=== PATIENT | female | born 1950 | race African-American/Black ===

== ENCOUNTER 2017-08-18 10:27 | Emergency (ER) | payer MEDICARE, MEDICAID, OTHER ==
[~2017-08-18] VITALS: Ht 160 cm; Wt 80.9 kg
[2017-08-18 10:48] VITALS: Ht 160 cm; Wt 80.9 kg
[2017-08-18] MEDS ORDERED: GLUCOPHAGE500 MG PO (10:50)
[2017-08-18] MEDS ORDERED: HYDROCHLOROTH12.5 M1 PO (10:51)
[2017-08-18] MEDS ORDERED: KEPPRA500 MG PO (10:52)
[2017-08-18] MEDS ORDERED: TYLENOL W/CODEI1 TAB PO (10:52)
[2017-08-18] MEDS ORDERED: NORCO 7.5/325 T1 TA1 PO (10:53)
[2017-08-18] MEDS ORDERED: ZOFRAN4 MG PO (10:53)
[2017-08-18 12:57] LABS: HEMATOCRIT 42.6 % (36.0-48.0); HEMOGLOBIN 14.2 g/dL (12-16); MCH 28.9 pg (26.0-34.0); MCHC 33.3 g/dL (31.0-37.0); MCV 86.6 fL (80.0-100.0); MEAN PLATELET VOLUME 10.8 fL (7.4-10.4); PLATELET COUNT 355 10x3/uL (130-400); RBC 4.92 10x6/uL (4.00-5.40); RDW 15.2 % (11.5-14.5); WBC 9.1 10x3/uL (4.8-10.8)
[2017-08-18 13:07] LABS: APPEARANCE CLEAR (CLEAR); BILIRUBIN NEGATIVE (NEGATIVE); COLOR YELLOW (YELLOW); GLUCOSE 1000 mg/dL (NEGATIVE); KETONE NEGATIVE (NEGATIVE); NITRITE NEGATIVE (NEGATIVE); PROTEIN NEGATIVE (NEGATIVE); SPECIFIC GRAVITY 1.005 (1.005-1.020); UROBILINOGEN NORMAL (NORMAL)
[2017-08-18 13:28] LABS: INR 0.93 (0.85-1.17); PROTIME 12.1 SECONDS (11.6-15.0)
[2017-08-18 13:30] LABS: ALBUMIN 3.8 g/dL (3.4-5.0); BILIRUBIN - TOTAL 0.31 mg/dL (0.2-1.3); CALCIUM 10.8 mg/dL (8.5-10.1); CARBON DIOXIDE 30.5 mmol/L (21.0-32.0); POTASSIUM - SERUM 4.5 mmol/L (3.5-5.1); PROTEIN - SERUM 8.5 g/dL (6.4-8.2)
[2017-08-18 13:43] VITALS: BP 130/78
[2017-08-18 13:48] LABS: LYMPHOCYTES 61 % (15-50); MONOCYTES 10 % (2-11); NEUTROPHILS 29 % (40-80); PLATELET ESTIMATE NORMAL
== END 2017-08-18 13:50 | disposition home or self-care (01) ==
LOC: D.ER 10:27
PROVIDERS: Emergency Medicine
DX: K92.2 Gastrointestinal hemorrhage, unspecified (principal)

== ENCOUNTER 2017-10-25 16:05 | Emergency (ER) | payer MEDICARE, MEDICAID, OTHER ==
[~2017-10-25] VITALS: Ht 160 cm; Wt 78.6 kg
[~2017-10-25 16:05] MED LIST: GLUCOPHAGE500 MG PO; HYDROCHLOROTH12.5 M1 PO; KEPPRA500 MG PO; NORCO 7.5/325 T1 TA1 PO; TYLENOL W/CODEI1 TAB PO; ZOFRAN4 MG PO
[2017-10-25 16:21] VITALS: Ht 160 cm; Wt 78.6 kg
[2017-10-25] MEDS ORDERED: VOLTAREN75 MG PO (17:09)
[2017-10-25] MEDS ORDERED: VIBRAMYCIN 100100 MG PO (17:52)
[2017-10-25] MEDS ORDERED: ZOFRAN ODT4 MG/UDTAB PO (17:53)
[2017-10-25 19:08] VITALS: BP 117/62
== END 2017-10-25 19:02 | disposition home or self-care (01) ==
LOC: D.ER 16:05
DX: L03.311 Cellulitis of abdominal wall (principal); M54.6 Pain in thoracic spine; E11.9 Type 2 diabetes mellitus without complications; I10 Essential (primary) hypertension

== ENCOUNTER 2017-12-23 10:24 | Emergency (ER) | payer MEDICARE, MEDICAID, OTHER ==
[~2017-12-23] VITALS: Ht 160 cm; Wt 95.5 kg
[~2017-12-23 10:24] MED LIST changes: +VIBRAMYCIN 100100 MG PO; +VOLTAREN75 MG PO; +ZOFRAN ODT4 MG/UDTAB PO
[2017-12-23 10:26] VITALS: Ht 160 cm; Wt 95.5 kg
[2017-12-23] MEDS ORDERED: HYDROCODON-ACE1 EAC7 PO (12:11)
[2017-12-23] MEDS ORDERED: NAPROXEN375 M1 PO (12:11)
[2017-12-23 12:33] VITALS: BP 139/74
== END 2017-12-23 15:22 | disposition home or self-care (01) ==
LOC: D.ER 10:24
DX: S39.012A Strain of muscle, fascia and tendon of lower back, initial encounter (principal); X58.XXXA Exposure to other specified factors, initial encounter; Y93.89 Activity, other specified; Y92.89 Other specified places as the place of occurrence of the external cause; G40.909 Epilepsy, unspecified, not intractable, without status epilepticus; E11.9 Type 2 diabetes mellitus without complications; I10 Essential (primary) hypertension

== ENCOUNTER 2018-10-28 18:09 | Emergency (ER) | payer MEDICARE, MEDICAID ==
[~2018-10-28] VITALS: Ht 160 cm; Wt 81.8 kg
[~2018-10-28 18:09] MED LIST changes: +FAMVIR500 MG PO; +FLORAJEN3 CAPS460 MG PO; +HYDROCODON-ACE1 EAC7 PO; +MUCINEX600 MG PO; +NAPROXEN375 M1 PO; +NORVASC5 MG PO; +OMNICEF300 MG PO; +TESSALON PERLE100 MG PO; +ZITHROMAX250 MG PO
[2018-10-28 18:15] VITALS: Ht 160 cm; Wt 81.8 kg
[2018-10-28] MEDS ORDERED: NAPROSYN500 MG PO (19:14)
[2018-10-28] MEDS ORDERED: VIBRAMYCIN 100100 MG PO (19:14)
[2018-10-28 19:36] VITALS: BP 138/73
== END 2018-10-28 19:34 | disposition home or self-care (01) ==
LOC: D.ER 18:09
DX: L03.114 Cellulitis of left upper limb (principal)

== ENCOUNTER 2019-05-16 11:09 | Emergency (ER) | payer MEDICARE, MEDICAID ==
[~2019-05-16] VITALS: Ht 160 cm; Wt 81.4 kg
[~2019-05-16 11:09] MED LIST changes: +NAPROSYN500 MG PO
[2019-05-16 11:13] VITALS: Ht 160 cm; Wt 81.4 kg
[2019-05-16] MEDS ORDERED: ULTRAM50 MG PO (12:30)
[2019-05-16] MEDS ORDERED: NAPROSYN500 MG PO (12:30)
[2019-05-16 13:02] VITALS: BP 134/50
== END 2019-05-16 13:08 | disposition home or self-care (01) ==
LOC: D.ER 11:09
DX: S20.212A Contusion of left front wall of thorax, initial encounter (principal); W10.9XXA Fall (on) (from) unspecified stairs and steps, initial encounter; E11.9 Type 2 diabetes mellitus without complications; Z79.84 Long term (current) use of oral hypoglycemic drugs; I10 Essential (primary) hypertension; M54.9 Dorsalgia, unspecified

== ENCOUNTER 2019-10-23 12:31 | Inpatient (IN) | payer MEDICARE, MEDICAID ==
[~2019-10-23] VITALS: Ht 160 cm; Wt 79.4 kg
[~2019-10-23 12:31] MED LIST changes: +ULTRAM50 MG PO
[2019-10-23 15:58] LABS: HEMOGLOBIN 13.4 g/dL (12-16); MCH 28.5 pg (26.0-34.0); MCHC 32.7 g/dL (31.0-37.0); MCV 87.2 fL (80.0-100.0); MEAN PLATELET VOLUME 9.7 fL (7.4-10.4); PLATELET COUNT 359 10x3/uL (130-400); RDW 15.4 % (11.5-14.5); WBC 9.6 10x3/uL (4.8-10.8)
[2019-10-23 16:23] LABS: APTT 28.9 SECONDS (22.8-39.4); INR 0.97 (0.85-1.17); PROTIME 12.8 SECONDS (11.6-15.0)
[2019-10-23 16:24] LABS: ANION GAP 6.7 mmol/L (8-16); CALCIUM 9.5 mg/dL (8.5-10.1); CARBON DIOXIDE 32.3 mmol/L (21.0-32.0); CREATININE - SERUM 0.9 mg/dL (0.6-1.3)
[2019-10-23 16:30] LABS: ALBUMIN 3.8 g/dL (3.4-5.0); BILIRUBIN - TOTAL 0.25 mg/dL (0.2-1.3); PROTEIN - SERUM 7.7 g/dL (6.4-8.2)
[2019-10-23 17:11] LABS: EOSINOPHILS 2 % (0-7); LYMPHOCYTES 59 % (15-50); MONOCYTES 4 % (2-11); NEUTROPHILS 35 % (40-80); PLATELET ESTIMATE NORMAL
[2019-10-23 19:00] VITALS: BP 162/77
[2019-10-23 20:00] VITALS: BP 165/69
[2019-10-23] MEDS ORDERED: JANUMET 50-1,01 EAC1 PO (20:00)
--- NOTE | 2019-10-23 20:00 | NUR ---
RECEIVED TO FLOOR VIA WHEELCHAIR, ACCOMPANIED BY ER STAFF. A&O, AMBULATES INDEPENDENTLY. DENIES PAIN/WEAKNESS AT THIS TIME. SANDWICH TRAY AND DIET ETTA GIVEN PER REQUEST, CTM.
[2019-10-23] MEDS ORDERED: GLUCOTROL ER2.5 MG PO (20:02)
[2019-10-23] MEDS ORDERED: GLUCOTROL 5 MG T5 MG PO (20:03)
[2019-10-23 23:14] LABS: CREATINE KINASE 272 UL (21-215)
[2019-10-23 23:15] LABS: TROPONIN-I < 0.017 ng/mL (0.000-0.060)
[2019-10-23 23:55] VITALS: BMI 31.0
[2019-10-24] VITALS: BP 182/73
[2019-10-24 04:00] VITALS: BP 136/67
--- NOTE | 2019-10-24 06:18 | NUR ---
I have reviewed this patient and I concur with the Shift Assessment completed by the Licensed Practical Nurse today this shift.
[2019-10-24 07:00] LABS: HEMATOCRIT 39.6 % (36.0-48.0); MCH 28.5 pg (26.0-34.0); MCHC 32.8 g/dL (31.0-37.0); MCV 86.8 fL (80.0-100.0); MEAN PLATELET VOLUME 10.1 fL (7.4-10.4); PLATELET COUNT 388 10x3/uL (130-400); RBC 4.56 10x6/uL (4.00-5.40); RDW 15.6 % (11.5-14.5); WBC 8.9 10x3/uL (4.8-10.8)
--- NOTE | 2019-10-24 07:00 | NUR ---
PT RESTING QUIETLY IN BED. ALERT AND ORIENTED. PT REPORTS PAIN TO RIGHT ARM 6/10 AT THIS TIME. IV TO LEFT AC WITH 1/2 NS @ 50ML/HR INFUSING VIA PUMP. SITE WITHOUT REDNESS OR EDEMA. MOVES ALL EXTREMITIES. DENIES FURTHER NEEDS AT TIS TIME. CL WITHIN REACH. ENCOURAGED TO CALL WITH NEEDS. CONTINUE POC
[2019-10-24 07:14] LABS: CALC OSMOLALITY 280 mosm/kg (275-300); CALCIUM 9.2 mg/dL (8.5-10.1); CARBON DIOXIDE 28.1 mmol/L (21.0-32.0); CHLORIDE - SERUM 103 mmol/L (98-107); CKMB 3.7 U/L (0.0-3.6); CREATINE KINASE 221 UL (21-215); CREATININE - SERUM 0.8 mg/dL (0.6-1.3); GLUCOSE 154 mg/dL (74-106); PHOSPHOROUS 4.1 mg/dL (2.5-4.9); POTASSIUM - SERUM 3.9 mmol/L (3.5-5.1); SODIUM 139 mmol/L (136-145); TROPONIN-I < 0.017 ng/mL (0.000-0.060); UREA NITROGEN 13 mg/dL (7-18); eGFR NON AFRICAN AMERICAN 75 mL/min (90-120)
[2019-10-24 07:57] LABS: BASOPHILS 1 % (0-2); EOSINOPHILS 1 % (0-7); LYMPHOCYTES 56 % (15-50); MONOCYTES 4 % (2-11); NEUTROPHILS 37 % (40-80)
[2019-10-24 07:58] LABS: BURR CELLS OCC; TARGET CELLS OCC; TEAR DROP CELLS OCC
[2019-10-24 08:21] LABS: PLATELET ESTIMATE NORMAL
[2019-10-24 09:12] VITALS: BP 123/60
--- NOTE | 2019-10-24 10:00 | NUR ---
SALINE LOC 20 G SITED TO LEFT FOREARM X 1 STICK. GOOD BLOOD RETURN, PT JAVON WELL.
[2019-10-24 10:45] LABS: CKMB 3.6 U/L (0.0-3.6); CREATINE KINASE 215 UL (21-215); TROPONIN-I < 0.017 ng/mL (0.000-0.060)
[2019-10-24 13:02] VITALS: BP 131/55
[2019-10-24 17:22] VITALS: BP 122/98
[2019-10-24 20:00] VITALS: BP 134/73
--- NOTE | 2019-10-24 20:30 | NUR ---
LYING IN BED. ALERT AND ORIENTED X4. RT SIDED WEAKNESS NOTED. AMBULTORY. RESP EVEN AND NONLABORED. TELEMETRY SHOWS SR WITH RATE OF 71. 1/2 NS @ 50 MLHR INFUSING IN LT AC. C/O PAIN IN RT SHOULDER, NECK AND SIDE 8. SALINE LOCK NOTED TO LT FOREARM. SR ELEVATED X2. CL IN REACH. VERY TALKATIVE WITH STAFF.
--- NOTE | 2019-10-24 20:35 | NUR ---
MEDICATED WITH NORCO FOR C/O RT SHOULDER, NECK AND SIDE PAIN. SR ELEVATED X2. CL IN REACH.
--- NOTE | 2019-10-24 21:58 | NUR ---
MRI WAS ATTEMPTED. PATIENT WAS PUT ON MRI TABLE AND BECAME TOO CLAUSTROPHOBIC WHEN THE HEAD PIECE WAS PUT ON. SHE WAS TOLD THEY WOULD "KNOCK HER OUT FOR THE MRI". I SPOKE WITH NORMA THE NURSE AND SHE TOLD ME THERE WERE NOT ANY MEDS ORDERED. THE PATIENT TOLD ME SHE COULD NOT DO IT. I TOLD HER WE COULD TRY AGAIN TOMORROW.
--- NOTE | 2019-10-24 22:00 | NUR ---
BACK FROM MRI THAT SHE REFUSED. STATES SHE WANTS "ANESTHESIA TO SEDATE HER".
[2019-10-25] VITALS: BP 126/54
--- NOTE | 2019-10-25 01:32 | NUR ---
RESTING WITH EYES CLOSED. RESP EVEN AND NONLABORED. NO DISTRESS. CL IN REACH.
[2019-10-25 04:00] VITALS: BP 139/60
[2019-10-25 06:42] LABS: BASOPHILS 0.3 % (0-2); EOSINOPHILS 2.2 % (0-7); HEMATOCRIT 40.7 % (36.0-48.0); HEMOGLOBIN 13.5 g/dL (12-16); IMMATURE GRANULOCYTES 0.1 % (0-5); LYMPHOCYTES 50.6 % (15-50); MCH 28.7 pg (26.0-34.0); MCHC 33.2 g/dL (31.0-37.0); MCV 86.6 fL (80.0-100.0); MEAN PLATELET VOLUME 10.6 fL (7.4-10.4); NEUTROPHILS 37.8 % (40-80); PLATELET COUNT 394 10x3/uL (130-400); RDW 15.2 % (11.5-14.5); WBC 7.2 10x3/uL (4.8-10.8)
[2019-10-25 06:57] LABS: CALC OSMOLALITY 285 mosm/kg (275-300); CALCIUM 9.3 mg/dL (8.5-10.1); CARBON DIOXIDE 29.2 mmol/L (21.0-32.0); CHLORIDE - SERUM 104 mmol/L (98-107); CREATININE - SERUM 0.8 mg/dL (0.6-1.3); GLUCOSE 193 mg/dL (74-106); PHOSPHOROUS 3.7 mg/dL (2.5-4.9); POTASSIUM - SERUM 3.8 mmol/L (3.5-5.1); SODIUM 141 mmol/L (136-145); UREA NITROGEN 13 mg/dL (7-18); eGFR NON AFRICAN AMERICAN 75 mL/min (90-120)
[2019-10-25 08:36] VITALS: BP 152/69
--- NOTE | 2019-10-25 09:17 | NUR ---
PT SITTING UP IN BED WITH SPOUSE AT BEDSIDE. RESP EVEN AND UNLABORED. REPORTS PAIN 3/10 AT THIS TIME, BUT DENIES NEED FOR PAIN MEDICATION AT THIS TIME. IV TO LEFT FOREARM WITH 1/2 NS @ 50ML/HR INFUSING VIA PUMP. SITE WITHOUT REDNESS OR EDEMA. SALINE LOC TO LEFT AC SITE WITHOUT REDNESS OR EDEMA. DENIES FURTHER NEEDS AT TIS TIME. CL WITHIN REACH. ENCOURAGED TO CALL WITH NEEDS. CONTINUE POC
[2019-10-25 12:30] VITALS: BP 122/56
[2019-10-25 14:42] VITALS: Ht 160 cm; Wt 79.4 kg
[2019-10-25 18:10] VITALS: BP 128/59
[2019-10-25 20:00] VITALS: BP 144/77
[2019-10-26 06:18] LABS: HEMOGLOBIN 12.7 g/dL (12-16); MCH 28.2 pg (26.0-34.0); MCHC 32.6 g/dL (31.0-37.0); MCV 86.5 fL (80.0-100.0); MEAN PLATELET VOLUME 10.2 fL (7.4-10.4); PLATELET COUNT 387 10x3/uL (130-400); RBC 4.51 10x6/uL (4.00-5.40); RDW 15.3 % (11.5-14.5); WBC 8.3 10x3/uL (4.8-10.8)
[2019-10-26 06:38] LABS: CALC OSMOLALITY 285 mosm/kg (275-300); CARBON DIOXIDE 26.5 mmol/L (21.0-32.0); CHLORIDE - SERUM 103 mmol/L (98-107); CREATININE - SERUM 0.8 mg/dL (0.6-1.3); GLUCOSE 226 mg/dL (74-106); MAGNESIUM - SERUM 2.1 mg/dL (1.8-2.4); PHOSPHOROUS 3.4 mg/dL (2.5-4.9); POTASSIUM - SERUM 3.8 mmol/L (3.5-5.1); SODIUM 139 mmol/L (136-145); UREA NITROGEN 15 mg/dL (7-18); eGFR NON AFRICAN AMERICAN 75 mL/min (90-120)
--- NOTE | 2019-10-26 07:15 | NUR ---
REC'D IN BED AWAKE AND ALERT. RESP EVEN AND UNLABORED WITH NO DISTRESS NOTED. CAN EXPRESS NEEDS AND WANT. NO C/O NOTED OR VOICED ASSESSMENT COMPLETED. NO C/O NOTED OR VOICED. C/L IN REACH AT BEDSIDE.
[2019-10-26 07:30] LABS: BASOPHILS 1 % (0-2); BURR CELLS OCC; LYMPHOCYTES 75 % (15-50); MONOCYTES 2 % (2-11); NEUTROPHILS 19 % (40-80); SCHISTOCYTES OCC
[2019-10-26 07:31] LABS: TARGET CELLS OCC
[2019-10-26 07:40] LABS: PLATELET ESTIMATE NORMAL
[2019-10-26 08:00] VITALS: BP 133/68
--- NOTE | 2019-10-26 08:58 | EC ---
PATIENT:RAHAT OLGUIN DATE OF SERVICE: 10/23/19 SEX: F MEDICAL RECORD: [id number] DATE OF : 50 LOCATION:[facility] AGE OF PATIENT: 68 ADMISSION DATE: 10/23/19 REFERRING PHYSICIAN: INTERPRETING PHYSICIAN: HERO RAJPUT MD ECHOCARDIOGRAM REPORT ECHO CHARGES 4 ECHO COMPLETE Date: 10/24/19 CLINICAL DIAGNOSIS: RIGHT SIDE NUMB, TIA ECHOCARDIOGRAPHIC MEASUREMENTS (adult normal given) AC root (d.<3.7cm) 2.8 cm LV Septum d (<1.2 cm> 0.7 cm Valve Excursion 1.5 cm LV Septum (systole) 1.2 cm Left Atria (s.<4.0cm> 3.5 cm LVPW d(<1.2cm) 0.7 cm RV (d.<2.3cm) 2.1 cm LVPW (sytole) 1.0 cm LV diastole(<5.6CM) 5.7 cm MV E-F(>70mm/sec) cm LV systole 4.3 cm LVOT Diameter 1.7 cm MV exc.(>10mm) cm Est.ejection fraction (50-75%) % DOPPLER: LVIT cm/sec A 111 cm/sec E 82 cm/sec LA cm/sec RVSP 27.7 mmHg LVOT 126 cm/sec AOP1/2T m/s Asc. Ao 147 cm/sec RVOT 75 cm/sec RA cm/sec PA 93 cm/sec AV Gradient Peak 8.7 mmHg AV Mean 5.1 mmHg AV Area 1.8 cm MV Gradient Peak 9.2 mmHg MV Mean 4.8 mmHg MV Area cm COMMENTS: Search Marketing Analyst: Eleonora GARIBAY Early Childhood Teacher: 3 Dr. Galdamez TAPE# PACS Pericardial Effusion N DATE OF SERVICE: Adequate 2D, color flow imaging, spectral Doppler, and M-mode. No LVH. LV internal dimensions are normal. Wall motion is normal. EF is greater than or equal to 55%. Aortic valve is tricuspid. No evidence of stenosis by Doppler interrogation. Left atrium is normal. Mitral valve shows no prolapse. Trivial MR. Right-sided chambers are grossly normal. Trivial TR. NTS:[id number] Voice Confirmation ID: [id number] DOCUMENT ID: [id number] ECHOCARDIOGRAM REPORT [id number] RAHAT OLGUIN HERO RAJPUT MD at 0858 CC: [id number] DICTATION DATE: 10/24/19 1615 INSPECTOR WATCH PARTS: 10/24/19 192 ADM IN [place] [id number] [place] [address]
[2019-10-26 13:26] VITALS: BP 134/65
--- NOTE | 2019-10-26 14:25 | NUR ---
I have reviewed this patient and I concur with the Shift Assessment completed by the Licensed Practical Nurse today this shift.
[2019-10-26 16:17] VITALS: BP 136/66
--- NOTE | 2019-10-26 18:33 | NUR ---
REC'D CALL FROM DR. OTERO WITH NEW ORDERS FOR DECADRON 6 MG EVERY 6 HOURS VIA IV. PT MADE AWARE OF NEW ORDER AND AGREES WITH POC. C/L IN REACH AT BEDSIDE.
[2019-10-26 20:00] VITALS: BP 141/65
--- NOTE | 2019-10-27 03:30 | NUR ---
I have reviewed this patient and I concur with the Shift Assessment completed by the Licensed Practical Nurse today this shift.
[2019-10-27 04:00] VITALS: BP 125/46
[2019-10-27 07:02] LABS: BASOPHILS 0.2 % (0-2); EOSINOPHILS 2.2 % (0-7); HEMATOCRIT 41.2 % (36.0-48.0); HEMOGLOBIN 13.5 g/dL (12-16); IMMATURE GRANULOCYTES 0.1 % (0-5); MCH 28.4 pg (26.0-34.0); MCHC 32.8 g/dL (31.0-37.0); MCV 86.7 fL (80.0-100.0); MEAN PLATELET VOLUME 10.4 fL (7.4-10.4); MONOCYTES 7.6 % (2-11); PLATELET COUNT 406 10x3/uL (130-400); RBC 4.75 10x6/uL (4.00-5.40); RDW 15.2 % (11.5-14.5); WBC 8.8 10x3/uL (4.8-10.8)
[2019-10-27 07:06] LABS: LYMPHOCYTES 61.9 % (15-50)
[2019-10-27 07:50] LABS: ANION GAP 14.9 mmol/L (8-16); CALCIUM 9.4 mg/dL (8.5-10.1); CARBON DIOXIDE 26.3 mmol/L (21.0-32.0); CREATININE - SERUM 0.9 mg/dL (0.6-1.3); MAGNESIUM - SERUM 2.1 mg/dL (1.8-2.4); PHOSPHOROUS 4.1 mg/dL (2.5-4.9); POTASSIUM - SERUM 4.2 mmol/L (3.5-5.1)
--- NOTE | 2019-10-27 08:46 | NUR ---
RESTING IN BED, NO DISTRESS NOTED SL IN PLACE, NPO FOR CT OF ABD
[2019-10-27 09:53] VITALS: BP 120/57
[2019-10-27 12:45] VITALS: BP 142/67
[2019-10-27 16:37] VITALS: BP 116/67
--- NOTE | 2019-10-27 21:30 | NUR ---
RESTING QUEITLY. NO COMPLAINTS VOICED AT PRESENT.SL TO RFA INTACT WITHOUT REDNESS OR EDMEA NOTED. CL IN REACH
[2019-10-27 23:03] VITALS: BP 146/70
--- NOTE | 2019-10-28 00:10 | NUR ---
REFUSES DECADRON. STATES ALLERGIC TO STERIODS
--- NOTE | 2019-10-28 02:18 | NUR ---
I have reviewed this patient and I concur with the Shift Assessment completed by the Licensed Practical Nurse today this shift.
[2019-10-28 02:35] VITALS: BP 102/63
[2019-10-28 04:49] LABS: HEMATOCRIT 41.5 % (36.0-48.0); HEMOGLOBIN 13.5 g/dL (12-16); MCH 28.1 pg (26.0-34.0); MCHC 32.5 g/dL (31.0-37.0); MCV 86.3 fL (80.0-100.0); MEAN PLATELET VOLUME 10.4 fL (7.4-10.4); PLATELET COUNT 333 10x3/uL (130-400); RBC 4.81 10x6/uL (4.00-5.40); RDW 15.3 % (11.5-14.5)
[2019-10-28 04:57] LABS: CALC OSMOLALITY 280 mosm/kg (275-300); CALCIUM 9.5 mg/dL (8.5-10.1); CARBON DIOXIDE 29.2 mmol/L (21.0-32.0); CHLORIDE - SERUM 102 mmol/L (98-107); CREATININE - SERUM 0.8 mg/dL (0.6-1.3); GLUCOSE 180 mg/dL (74-106); MAGNESIUM - SERUM 2.1 mg/dL (1.8-2.4); PHOSPHOROUS 4.2 mg/dL (2.5-4.9); POTASSIUM - SERUM 4.1 mmol/L (3.5-5.1); SODIUM 137 mmol/L (136-145); UREA NITROGEN 18 mg/dL (7-18); eGFR NON AFRICAN AMERICAN 75 mL/min (90-120)
[2019-10-28 05:07] LABS: BASOPHILS 2 % (0-2); LYMPHOCYTES 59 % (15-50); MONOCYTES 4 % (2-11); NEUTROPHILS 35 % (40-80); PLATELET ESTIMATE NORMAL
[2019-10-28 07:13] VITALS: BP 125/69
[2019-10-28 09:31] VITALS: BP 112/61
--- NOTE | 2019-10-28 09:54 | NUR ---
PT SITTING UP IN BED. RESP EVEN AND UNLABORED. REPORTS PAIN 3/10 AT THIS TIME. SALINE LOC TO LEFT FOREARM, SITE WITHOUT REDNESS OR EDEMA. DENIES FURTHER NEEDS AT THIS TIME. CL WITHIN REACH. ENCORUAGED TO CALL WITH NEEDS. CONTINUE POC
[2019-10-28 11:36] LABS: CHOL - HDL RATIO 4.9 ratio (2.3-4.1); LDL-HDL RATIO 3.4 ratio (1.5-3.5)
[2019-10-28] MEDS ORDERED: ASPIRIN81 MG PO (11:57)
[2019-10-28] MEDS ORDERED: PROTONIX40 MG PO (11:57)
[2019-10-28] MEDS ORDERED: LIPITOR20 MG PO (11:58)
[2019-10-28] MEDS ORDERED: MEDROL DOSE PACK4 MG PO (11:58)
--- NOTE | 2019-10-28 12:07 | NUR ---
OT NOTE/EVAL: PT INDEP WITH MOBILITY AND ADLS..NO OT RECOMMENDED AT THIS TIME. THANK YOU FOR REFERAL, MACEY VALENCIA, OTR/L
[2019-10-28 12:34] VITALS: BP 125/65
--- NOTE | 2019-10-28 14:44 | MORECARE ---
CASE MANAGEMENT DISCHARGE SUMMARY PATIENT: RAHAT OLGUIN UNIT: [id number] ADM DATE: 10/23/19 AGE: 68 : 50 SEX: F ROOM/BED: D.2207 AUTHOR: POOL METCALF PHYSICIAN: REFERRING PHYSICIAN: ANDREW GORDON DO DATE OF SERVICE: 10/28/19 Discharge Plan Patient Name: RAHAT OLGUIN Facility: [facility]:[place] : 1950 Planned Disposition: Home or Self Care Anticipated Discharge Date: Discharge Date: Expected LOS: Initial Reviewer: [email or web address] Initial Review Date: 10/23/2019 Generated: 10/28/19 3:43 pm Comments DCP- Discharge Planning Updated by [email or web address]: Lina Mendiola on 10/28/19 1:[address] Patient Name: RAHAT OLGUIN Admission Status: ER Accout number: [id number] Admission Date: 10-23-2019 : 1950 Admission Diagnosis:CHEST PAIN, UNSPECIFIED Attending: ANDREW GORDON Current LOS: 5 Anticipated DC Date: Planned Disposition: Home or Self Care Primary Insurance: [employer] MEDICARE PPO or HMO Discharge Planning Comments: CM met with patient to complete initial dc planning assessment. CM educated patient on the CM role and verbal consent given by patient to complete assessment. Patient lives at home with her spouse where she is independent with her care. At discharge patient plans to return home and feels this is a safe discharge. CM discussed availability of home health, rehab services, and medical equipment. She has a glucometer at home. She did not think that she needed any home health or other services. She will drive herself home at discharge and feels that she si safe to do so. IMM served and explained copy given. Patient denied known discharge needs at this time. CM will continue to follow and will assist as needed with dc plans/needs. Peer Specialist: Lina Mendiola DCPIA - Discharge Planning Initial Assessment Updated by [email or web address]: Lina Mendiola on 10/28/19 2:39 pm * Is the patient Alert and Oriented? Yes * How many steps to enter\exit or inside your home? STEPS * PCP ANSHUL GAEG * Pharmacy [facility] [address] * Preadmission Environment Home with Family * ADLs Independent * Equipment Glucometer * List name and contact numbers for known caregivers / representatives who currently or will assist patient after discharge: FLAQUITA FARIA [phone] * Verbal permission to speak to the caregivers and representatives has been obtained from the patient. N/A * Community resources currently utilized None * Additional services required to return to the preadmission environment? No * Can the patient safely return to the preadmission environment? Yes * Has this patient been hospitalized within the prior 30 days at any hospital? No Coverage Notice Reviewer: [email or web address] Brennen Mendiola Notice Issued Date-Time: 10/28/2019 14:10 Notice Type: IM Discharge Notice Notice Delivered To: Patient Relationship to Patient: Black Off Worker Name: Delivery Method: HAND - Hand Delivered Ana Days: Prior Verbal Notification: Recipient Understood Notice: Yes Recipient Signature: Yes Med Rec Note Co-signed by Attending: Coverage Notice Comment: imm served and explained Patient Name: RAHAT OLGUIN Page [id number] at 1444 All edits/amendments must be made on the electronic document DICTATION DATE: 10/28/19 1443 LANDSCAPE DRAFTER: FUNMILAYO 10/28/19 1443 RPT#: [id number] DC DATE: STATUS: ADM IN [facility] [address] [place] [address] END OF REPORT
--- NOTE | 2019-10-29 07:29 | MORECARE ---
CASE MANAGEMENT DISCHARGE SUMMARY PATIENT: RAHAT OLGUIN UNIT: [id number] ADM DATE: 10/23/19 AGE: 68 : 50 SEX: F ROOM/BED: D.2207 AUTHOR: POOL METCALF PHYSICIAN: REFERRING PHYSICIAN: ANDREW GORDON DO DATE OF SERVICE: 10/29/19 Discharge Plan Patient Name: RAHAT OLGUIN Facility: [facility]:[place] : 1950 Planned Disposition: Home or Self Care Anticipated Discharge Date: Discharge Date: 10/28/2019 Expected LOS: 0 Initial Reviewer: [email or web address] Initial Review Date: 10/23/2019 Generated: 10/29/19 8:28 am Comments DCP- Discharge Planning Updated by [email or web address]: Lina Mendiola on 10/28/19 1:[address] Patient Name: RAHAT OLGUIN Admission Status: ER Accout number: [id number] Admission Date: 10-23-2019 : 1950 Admission Diagnosis:CHEST PAIN, UNSPECIFIED Attending: ANDREW GORDON Current LOS: 5 Anticipated DC Date: Planned Disposition: Home or Self Care Primary Insurance: [employer] MEDICARE PPO or HMO Discharge Planning Comments: CM met with patient to complete initial dc planning assessment. CM educated patient on the CM role and verbal consent given by patient to complete assessment. Patient lives at home with her spouse where she is independent with her care. At discharge patient plans to return home and feels this is a safe discharge. CM discussed availability of home health, rehab services, and medical equipment. She has a glucometer at home. She did not think that she needed any home health or other services. She will drive herself home at discharge and feels that she si safe to do so. [facility] served and explained copy given. Patient denied known discharge needs at this time. CM will continue to follow and will assist as needed with dc plans/needs. Station Worker: Lina Mendiola DCPIA - Discharge Planning Initial Assessment Updated by [email or web address]: Lina Mendiola on 10/28/19 2:39 pm * Is the patient Alert and Oriented? Yes * How many steps to enter\exit or inside your home? STEPS * PCP ANSHUL GAGE * Pharmacy [facility] [address] * Preadmission Environment Home with Family * ADLs Independent * Equipment Glucometer * List name and contact numbers for known caregivers / representatives who currently or will assist patient after discharge: FLAQUITA FARIA * Verbal permission to speak to the caregivers and representatives has been obtained from the patient. N/A * Community resources currently utilized None * Additional services required to return to the preadmission environment? No * Can the patient safely return to the preadmission environment? Yes * Has this patient been hospitalized within the prior 30 days at any hospital? No Coverage Notice Reviewer: [email or web address] Brennen Mendiola Notice Issued Date-Time: 10/28/2019 14:10 Notice Type: IM Discharge Notice Notice Delivered To: Patient Relationship to Patient: Rug Sample Beveler Name: Delivery Method: HAND - Hand Delivered Ana Days: Prior Verbal Notification: Recipient Understood Notice: Yes Recipient Signature: Yes Med Rec Note Co-signed by Attending: Coverage Notice Comment: imm served and explained Last DP export: 10/28/19 1:44 p Patient Name: RAHAT OLGUIN Page 13902 at 0729 All edits/amendments must be made on the electronic document DICTATION DATE: 10/29/19728 ELEMENTARY INSTRUCTIONAL COACH: FUNMILAYO 10/29/19728 RPT#: [id number] DC DATE:10/28/19 STATUS: DIS IN [facility] [address] [place] [address] END OF REPORT
== END 2019-10-28 16:58 | disposition home or self-care (01) | DRG 74 ==
LOC: D.ER 12:31 → D.MS 17:43
PROVIDERS: Emergency Medicine; ADMIT Family Medicine; ATTEND Family Medicine
DX: M54.12 Radiculopathy, cervical region (principal); R07.9 Chest pain, unspecified; I10 Essential (primary) hypertension; E78.5 Hyperlipidemia, unspecified; E11.9 Type 2 diabetes mellitus without complications; R20.0 Anesthesia of skin; Q04.9 Congenital malformation of brain, unspecified; G40.909 Epilepsy, unspecified, not intractable, without status epilepticus